=== PATIENT | male | born 1975 | race Hispanic/Latino ===

== ENCOUNTER 2023-01-27 17:43 | Emergency (ER) | payer OTHER ==
[~2023-01-27] VITALS: Ht 170.2 cm; Wt 86.2 kg
[2023-01-27] MEDS ORDERED: KETOROLAC TROMETHAMINE 60 MG/2 ML VIAL ONE (18:31)
[2023-01-27] MEDS ORDERED: ACETAMINOPHEN 325 MG TAB ONE (18:34)
[2023-01-27] MEDS ORDERED: PENICILLIN G BENZATHINE LA 1.2 MU TBX IM STA (18:50)
[2023-01-27] MEDS ORDERED: KETOROLAC TROMETHAMINE 60 MG/2 ML VIAL IM ONE (19:00)
[2023-01-27] MEDS ORDERED: ACETAMINOPHEN 325 MG TAB PO ONE (19:00)
[2023-01-27] MEDS ORDERED: KETOROLAC TROME10 MG PO (19:18)
[2023-01-27] MEDS ORDERED: CLEOCIN HCL300 MG PO (19:18)
[2023-01-27 19:28] VITALS: BP 139/103; PULSE 73; RESP 16; TEMP 99; O2SAT 100
== END 2023-01-27 19:25 | disposition home or self-care (01) ==
LOC: ER 18:00
DX: K04.7 Periapical abscess without sinus (principal); Z98.818 Other dental procedure status
CPT/HCPCS: 99283; J1885